=== PATIENT | female | born 1985 | race African-American/Black ===

== ENCOUNTER 2019-11-22 14:34 | Emergency (ER) | payer OTHER, MEDICAID, SELFPAY ==
[2019-11-22 14:48] VITALS: BP 135/82; PULSE 84; RESP 16; TEMP 37.2; O2SAT 98
--- NOTE | 2019-11-22 15:46 | ED.GENADULT ---
HPI - General Adult General Chief complaint: Upper Respiratory Infection Stated complaint: Head/Chest congestion/Body Aches/Cough Time Seen by Provider: 11/22/19 15:46 Source: patient and RN notes reviewed Mode of arrival: ambulatory Limitations: no limitations History of Present Illness HPI narrative: 34-year-old -[place] female with complaints of upper respiratory infection symptoms, chills and sweats, congestion, and cough for 1 day. NyQuil and Sudafed with little relief. Dry cough with intermittent productive cough (green phlegm). Rhinorrhea and nasal congestion. No exacerbating factors. High fevers, highest F, orally with intermittent chills. No nausea, vomiting, and abdominal pain. Denies chest pain, dyspnea, coughing up blood, difficulty swallowing, jaw pain, dental pain, facial pain, foreign body sensation, and rash. Sara denies being , LMP 10/25/19. Some parts of this dictation were generated by voice recognition software and may contain typographical and/or grammatical inaccuracies. Related Data Home Medications Medication Instructions Recorded Confirmed sertraline mg 11/22/19 Allergies Allergy/AdvReac Type Severity Reaction Status Date / Time No Known Allergies Allergy Unknown Unverified 08/10/19 17:58 Review of Systems Review of Systems: Narrative: CONSTITUTIONAL: Complains of fever, chills, sweats. EYES: Denies visual changes, redness, discharge. ENT: Complains of rhinorrhea, congestion, scratchy throat. Denies sore throat, otalgia. CARDIOVASCULAR: Denies chest pain, palpitations, edema. RESPIRATORY: Denies dyspnea, wheezing. Complains of dry cough. GASTROINTESTINAL: Denies abdominal pain, nausea, vomiting, diarrhea. GENITOURINARY: Denies dysuria, hematuria, abnormal discharge. SKIN: Denies rash or itching. MUSCULOSKELETAL: Denies acute back pain, joint pain, myalgia. NEUROLOGIC: Denies numbness or focal weakness. PSYCHIATRIC: Denies anxiety or depression. All systems reviewed & are unremarkable except as noted in HPI and below PMFSH Past Medical History Medical History (Updated 11/23/19 @ 00:00 by Alexandra Daemmarkus) Anxiety Depression Surgical History Surgical History (Updated 11/22/19 @ 16:04 by RUBEN Morales) H/O section History of breast augmentation Family History Family History (Updated 11/22/19 @ 16:05 by RUBEN Morales) Father Hypertension Mother Hypertension Grandparent Hypertension Grandparent Hypertension Social History Social History (Updated 11/22/19 @ 16:05 by RUBEN Morales) Smoking status: Never smoker Second hand tobacco smoke exposure: Yes Alcohol intake: never Substance use type: marijuana Living arrangements: with family Occupation/Education: occupation Gender identity (if verbalized by the patient): Female Comments At time of signature, agree with nurse past medical, surgical, social, and family history. There is no relevant family history pertinent to the presenting complaint. Exam Narrative: Exam Narrative: GENERAL: This is a well-nourished, well-developed patient, in no apparent distress. Speaks in full sentences and ambulates with steady gait without dyspnea. HEAD: normocephalic, atraumatic. EYES: PERRL. Sclera clear/white. Vision is grossly intact. EARS: External ears normal, auditory canals clear and without drainage, TMs normal without perforation. Hearing grossly intact. NOSE: External nose normal with no obvious nasal discharge, nares with moderate redness and enlarged turbinates, clear rhinorrhea. THROAT: Mucous membranes moist, posterior pharynx with PND, mild erythema, no exudate, and normal tonsils. No drainage, no concern for Peritonsillar abscess. No drooling, trismus, or neck swelling. NECK: Neck supple, non-tender without lymphadenopathy, masses or thyromegaly. CARDIOVASCULAR: Regular rate and rhythm without murmurs, gallops, or rubs. RESPIRATORY: Clear to auscultation
== END 2019-11-22 16:04 | disposition home or self-care (01) ==
PROVIDERS: Emergency Provider Nurse Practitioner Family; PCP Internal Medicine
DX: B34.9 Viral infection, unspecified (principal); F41.9 Anxiety disorder, unspecified; F32.9 Major depressive disorder, single episode, unspecified
CPT/HCPCS: 87804; 99213; G0463